=== PATIENT | male | born 1940 | race Caucasian/White ===

== ENCOUNTER → 2017-09-29 | Outpatient (CLI) | payer MEDICARE, BC ==
--- NOTE | 2017-09-29 13:33 | Diagnostic Imaging Report ---
PROCEDURE: X-RAY CHEST, TWO VIEWS COMPARISON: [facility], DX, [facility]AT W/CXR - [facility], 06/03/2016, 10:25. INDICATIONS: COUGH FINDINGS: LUNGS: There is stable pulmonary hyperinflation. New prominence of the interstitium in the mid and lower lung zones of the right lung without felicita consolidation. No new findings in the left lung. PLEURA: No effusions or pneumothorax. HEART \T\ MEDIASTINUM: The heart is within normal size-limits. BONES \T\ SOFT TISSUES: Mild degenerative changes of the spine are stable. There are no focal osseous lesions. CONCLUSION: Increasing reticulation in the right lung could be the result of fibrosis progression with or without a superimposed acute process. No consolidation. Recommend further evaluation with CT of the chest. COPD. Dictated by: Levar Guerra M.D. on 09/29/2017 at 13:33 Electronically approved by: Levar Guerra M.D. on 09/29/2017 at 13:33
== END ==
LOC: RAD 12:41
PROVIDERS: ATTEND Family Medicine
DX: R05 Cough (principal)
CPT/HCPCS: 71046

== ENCOUNTER → 2021-10-18 | Outpatient (CLI) | payer BC, MEDICARE | LOC: RAD 12:33 | PROVIDERS: ATTEND Internal Medicine | DX: J15.9 Unspecified bacterial pneumonia (principal); J44.1 Chronic obstructive pulmonary disease with (acute) exacerbation | CPT/HCPCS: 71046 ==

== ENCOUNTER → 2021-12-20 | Outpatient (CLI) | payer MEDICARE, BC | LOC: RAD 14:16 | PROVIDERS: ATTEND Internal Medicine | DX: J15.9 Unspecified bacterial pneumonia (principal) | CPT/HCPCS: 71046 ==

== ENCOUNTER 2022-01-12 13:21 | Emergency (ER) | payer MEDICARE, BC ==
[~2022-01-12] VITALS: Ht 177.8 cm; Wt 81.6 kg
== END 2022-01-12 15:15 | disposition home or self-care (01) ==
LOC: ER 13:25
DX: R09.02 Hypoxemia (principal); J44.9 Chronic obstructive pulmonary disease, unspecified; I10 Essential (primary) hypertension; K21.9 Gastro-esophageal reflux disease without esophagitis; Z85.89 Personal history of malignant neoplasm of other organs and systems; Z87.891 Personal history of nicotine dependence
CPT/HCPCS: 94799; 99282

== ENCOUNTER 2022-02-06 08:57 | Inpatient (IN) | payer MEDICARE, BC ==
[~2022-02-06] VITALS: Ht 177.8 cm; Wt 81.6 kg
[2022-02-06] MEDS ORDERED: SODIUM CHLORIDE 0.9% 1000ML 1,000 ML IV STA (09:12)
[2022-02-06] MEDS ORDERED: METHYLPREDNISOLONE SOD SUCC 125 MG/2ML VIAL IV STA (09:12)
[2022-02-06 09:22] LABS: BASOPHILS % 0.2 % (0.0-1.0); EOSINOPHILS # (AUTO) 0.1 (0.0-0.4); EOSINOPHILS % 1.4 % (0.0-6.0); HEMATOCRIT 37.3 % (38.2-49.6); HEMOGLOBIN 11.3 g/dL (14.0-18.0); LYMPHOCYTES # (AUTO) 1.5 (1.0-3.2); LYMPHOCYTES % 16.4 % (18.0-39.1); MEAN CORPUSCULAR HEMOGLOBIN 28.5 pg (28-32); MEAN CORPUSCULAR HGB CONC 30.3 g/dL (31-35); MEAN CORPUSCULAR VOLUME 94.2 fL (81-99); MONOCYTES # (AUTO) 0.7 (0.2-0.8); MONOCYTES % 7.4 % (4.4-11.3); NEUTROPHILS # (AUTO) 6.7 (2.1-6.9); NEUTROPHILS % 74.4 % (38.7-80.0); PLATELET COUNT 442 x10e3/uL (140-360); RED BLOOD COUNT 3.96 x10e6/uL (4.3-5.7); RED CELL DISTRIBUTION WIDTH 14.4 % (11.7-14.4)
[2022-02-06 09:32] LABS: INR 0.86; PROTHROMBIN TIME 12.5 seconds (11.9-14.5)
[2022-02-06 09:33] LABS: PARTIAL THROMBOPLASTIN TIME 32.6 seconds (23.8-35.5)
[2022-02-06 09:42] LABS: ALANINE AMINOTRANSFERASE 21 IU/L (0-55); ALBUMIN 2.8 g/dL (3.5-5.0); ALBUMIN/GLOBULIN RATIO 0.7 (0.8-2.0); ALKALINE PHOSPHATASE 65 IU/L (40-150); ANION GAP 16.4 mmol/L (8-16); BLOOD UREA NITROGEN 21 mg/dL (7-26); BUN/CREATININE RATIO 21 (6-25); CALCIUM 9.2 mg/dL (8.4-10.2); CARBON DIOXIDE 32 mmol/L (22-29); CHLORIDE 99 mmol/L (98-107); CREATINE KINASE 36 IU/L (30-200); CREATININE, SERUM 1.02 mg/dL (0.72-1.25); GLUCOSE 107 mg/dL (74-118); POTASSIUM 4.4 mmol/L (3.5-5.1); SODIUM 143 mmol/L (136-145)
[2022-02-06] MEDS ORDERED: PIPERACILLIN/TAZOBACTAM 4.5 GM in SODIUM CHLORIDE 0.9% 100 ML IV ONE (10:00)
[2022-02-06] MEDS ORDERED: IOPAMIDOL 370 MG/ML 100 ML INFUS..BTL INJ ONE (10:32)
[2022-02-06] MEDS ORDERED: OMEPRAZOLE40 MG PO (10:33)
[2022-02-06] MEDS ORDERED: MONTELUKAST SOD10 MG PO (10:35)
[2022-02-06] MEDS ORDERED: AMLODIPINE-OLM1 EACH (10:36)
[2022-02-06] MEDS: AMLODIPINE BESYLATE 5 MG TAB PO SCH (10:45)
[2022-02-06] MEDS: LEVALBUTEROL HCL SOLN NEBU 0.63 MG/3 ML NEB INH SCH ×2 (11:30→19:15)
[2022-02-06] MEDS: Vancomycin IV 1 GM in SODIUM CHLORIDE 0.9% 250ML 250 ML IV SCH ×2 (11:30→21:00)
[2022-02-06] MEDS ORDERED: LIDOCAINE HCL 1% LOCAL INJ 20 ML VIAL ONE ×2 (12:32)
[2022-02-06 14:12] VITALS: BP 123/79
[2022-02-06 14:18] LABS: BODY FLUID APPEARANCE CLOUDY; BODY FLUID COLOR RED; BODY FLUID TYPE PLEURAL
[2022-02-06 14:19] LABS: RBC,BODY FLUID 31000 cells/uL; WBC,BODY FLUID 265 cells/uL
[2022-02-06 14:55] LABS: LYMPHOCYTES,BODY FLUID 80 %; NEUTROPHILS,BODY FLUID 3 %
[2022-02-06 14:56] LABS: MONO/MACROPHG,BODY FLUID 10 %; OTHER CELLS,BODY FLUID 7 %
[2022-02-06] MEDS ORDERED: LACTATED RINGER'S 1,000 ML INJ ONE (15:30)
[2022-02-06 15:57] VITALS: BP 110/78
[2022-02-06 17:14] VITALS: BP 110/78
[2022-02-06 20:00] VITALS: BP 123/59
[2022-02-06] MEDS: TEMAZEPAM 15 MG CAP PO PRN (23:25)
[2022-02-07] MEDS: LEVALBUTEROL HCL SOLN NEBU 0.63 MG/3 ML NEB INH SCH ×4 (00:22→19:35)
[2022-02-07] MEDS ORDERED: LACTATED RINGER'S 1,000 ML INJ ONE (03:45)
[2022-02-07 05:01] LABS: BASOPHILS % 0.2 % (0.0-1.0); HEMATOCRIT 34.9 % (38.2-49.6); HEMOGLOBIN 10.6 g/dL (14.0-18.0); LYMPHOCYTES # (AUTO) 1.3 (1.0-3.2); LYMPHOCYTES % 10.9 % (18.0-39.1); MEAN CORPUSCULAR HEMOGLOBIN 28.1 pg (28-32); MEAN CORPUSCULAR HGB CONC 30.4 g/dL (31-35); MEAN CORPUSCULAR VOLUME 92.6 fL (81-99); MONOCYTES # (AUTO) 0.8 (0.2-0.8); MONOCYTES % 6.9 % (4.4-11.3); NEUTROPHILS # (AUTO) 9.9 (2.1-6.9); NEUTROPHILS % 81.5 % (38.7-80.0); PLATELET COUNT 425 x10e3/uL (140-360); RED BLOOD COUNT 3.77 x10e6/uL (4.3-5.7); RED CELL DISTRIBUTION WIDTH 14.5 % (11.7-14.4)
[2022-02-07 05:22] LABS: ALBUMIN 2.3 g/dL (3.5-5.0); ALBUMIN/GLOBULIN RATIO 0.6 (0.8-2.0); ANION GAP 11.8 mmol/L (8-16); CALCIUM 8.9 mg/dL (8.4-10.2); CREATININE, SERUM 0.97 mg/dL (0.72-1.25); POTASSIUM 4.8 mmol/L (3.5-5.1)
[2022-02-07] MEDS ORDERED: IOPAMIDOL 370 MG/ML 100 ML INFUS..BTL INJ ONE ×3 (06:39→11:57)
[2022-02-07 07:51] VITALS: BP 114/80
[2022-02-07 07:57] VITALS: BP 114/80
[2022-02-07] MEDS ORDERED: OLMESARTAN 20 MG TAB PO SCH (09:00)
[2022-02-07] MEDS: AMLODIPINE BESYLATE 5 MG TAB PO SCH (09:04)
[2022-02-07] MEDS: MONTELUKAST SODIUM 10 MG TAB PO SCH (09:07)
[2022-02-07] MEDS: PANTOPRAZOLE SOD 40 MG TABEC PO SCH (09:08)
[2022-02-07] MEDS: Vancomycin IV 1 GM in SODIUM CHLORIDE 0.9% 250ML 250 ML IV SCH ×2 (12:13→22:12)
[2022-02-07 12:34] VITALS: BP 95/60
[2022-02-07] MEDS ORDERED: LACTATED RINGER'S 1,000 ML ONE (14:02)
[2022-02-07 15:44] VITALS: BP 97/60
[2022-02-07 20:00] VITALS: BP 141/126
[2022-02-07] MEDS: TEMAZEPAM 15 MG CAP PO PRN ×2 (22:12→23:50)
[2022-02-07 22:35] VITALS: BP 115/76
[2022-02-08] VITALS (13 sets, daily range): BP systolic 94–132; BP diastolic 45–77
[2022-02-08] MEDS: LEVALBUTEROL HCL SOLN NEBU 0.63 MG/3 ML NEB INH SCH ×4 (01:20→18:50)
[2022-02-08 05:04] LABS: BASOPHILS % 0.3 % (0.0-1.0); EOSINOPHILS # (AUTO) 0.1 (0.0-0.4); EOSINOPHILS % 1.2 % (0.0-6.0); HEMATOCRIT 34.8 % (38.2-49.6); HEMOGLOBIN 10.4 g/dL (14.0-18.0); LYMPHOCYTES # (AUTO) 1.2 (1.0-3.2); LYMPHOCYTES % 13.3 % (18.0-39.1); MEAN CORPUSCULAR HGB CONC 29.9 g/dL (31-35); MEAN CORPUSCULAR VOLUME 93.8 fL (81-99); MONOCYTES # (AUTO) 0.8 (0.2-0.8); MONOCYTES % 9.1 % (4.4-11.3); NEUTROPHILS # (AUTO) 6.7 (2.1-6.9); NEUTROPHILS % 75.9 % (38.7-80.0); PLATELET COUNT 378 x10e3/uL (140-360); RED BLOOD COUNT 3.71 x10e6/uL (4.3-5.7); RED CELL DISTRIBUTION WIDTH 14.5 % (11.7-14.4)
[2022-02-08 05:20] LABS: ANION GAP 11.4 mmol/L (8-16); CALCIUM 8.1 mg/dL (8.4-10.2); CREATININE, SERUM 0.91 mg/dL (0.72-1.25); POTASSIUM 4.4 mmol/L (3.5-5.1)
[2022-02-08] MEDS: PANTOPRAZOLE SOD 40 MG TABEC PO SCH (09:00)
[2022-02-08] MEDS ORDERED: FENTANYL CITRATE/PF 100MCG/2 ML INJ ONE (12:54)
[2022-02-08] MEDS ORDERED: MIDAZOLAM HCL 2 MG/2 ML VIAL ONE (12:54)
[2022-02-08] MEDS ORDERED: SODIUM CHLORIDE 0.9% 250ML 250 ML ONE (12:55)
[2022-02-08] MEDS: MONTELUKAST SODIUM 10 MG TAB PO SCH (16:36)
[2022-02-08] MEDS: AMLODIPINE BESYLATE 5 MG TAB PO SCH (16:36)
[2022-02-08] MEDS ORDERED: Vancomycin IV 1 GM in SODIUM CHLORIDE 0.9% 250ML 250 ML IV SCH (21:00)
[2022-02-08] MEDS: TEMAZEPAM 15 MG CAP PO PRN (21:22)
[2022-02-08] MEDS ORDERED: MAGNESIUM HYDROXIDE 30 ML UDC PO PRN (21:45)
[2022-02-08] MEDS ORDERED: MAGNESIUM HYDROXIDE 30 ML UDC PO ONE (21:45)
[2022-02-09] VITALS: BP 118/77
[2022-02-09] MEDS: LEVALBUTEROL HCL SOLN NEBU 0.63 MG/3 ML NEB INH SCH ×3 (00:50→12:30)
[2022-02-09 04:00] VITALS: BP 117/80
[2022-02-09 04:54] LABS: BASOPHILS % 0.3 % (0.0-1.0); EOSINOPHILS # (AUTO) 0.2 (0.0-0.4); EOSINOPHILS % 1.6 % (0.0-6.0); HEMATOCRIT 36.8 % (38.2-49.6); HEMOGLOBIN 10.9 g/dL (14.0-18.0); LYMPHOCYTES # (AUTO) 1.7 (1.0-3.2); LYMPHOCYTES % 18.2 % (18.0-39.1); MEAN CORPUSCULAR HEMOGLOBIN 27.8 pg (28-32); MEAN CORPUSCULAR HGB CONC 29.6 g/dL (31-35); MEAN CORPUSCULAR VOLUME 93.9 fL (81-99); MONOCYTES # (AUTO) 0.9 (0.2-0.8); MONOCYTES % 9.8 % (4.4-11.3); NEUTROPHILS # (AUTO) 6.4 (2.1-6.9); NEUTROPHILS % 69.8 % (38.7-80.0); PLATELET COUNT 389 x10e3/uL (140-360); RED BLOOD COUNT 3.92 x10e6/uL (4.3-5.7); RED CELL DISTRIBUTION WIDTH 14.4 % (11.7-14.4)
[2022-02-09 05:13] LABS: ANION GAP 11.8 mmol/L (8-16); CALCIUM 8.5 mg/dL (8.4-10.2); CREATININE, SERUM 0.83 mg/dL (0.72-1.25); POTASSIUM 4.8 mmol/L (3.5-5.1)
[2022-02-09 08:23] VITALS: BP 124/81
[2022-02-09 08:59] VITALS: BP 124/81
[2022-02-09] MEDS: AMLODIPINE BESYLATE 5 MG TAB PO SCH (09:40)
[2022-02-09] MEDS: PANTOPRAZOLE SOD 40 MG TABEC PO SCH (09:40)
[2022-02-09] MEDS: MONTELUKAST SODIUM 10 MG TAB PO SCH (09:41)
[2022-02-09] MEDS ORDERED: FUROSEMIDE INJ 10 MG/ML 4 ML VIAL IV ONE (11:00)
[2022-02-09] MEDS ORDERED: FUROSEMIDE40 MG PO (11:22)
[2022-02-09] MEDS ORDERED: LEVOFLOXACIN250 MG PO ×2 (11:23)
== END 2022-02-09 15:12 | disposition home or self-care (01) | DRG 180 ==
LOC: ER 09:04 → ERHOLD 10:33 → MED/SURG3 13:58
PROVIDERS: ADMIT Internal Medicine; ATTEND Internal Medicine
PROC: 0W993ZZ Drainage of Right Pleural Cavity, Percutaneous Approach (ICD-10-PCS; 2022-02-06)
PROC: 0W9930Z Drainage of Right Pleural Cavity with Drainage Device, Percutaneous Approach (ICD-10-PCS; 2022-02-06)
PROC: 0BBC3ZX Excision of Right Upper Lung Lobe, Percutaneous Approach, Diagnostic (ICD-10-PCS; principal; 2022-02-08)
DX: C34.11 Malignant neoplasm of upper lobe, right bronchus or lung (principal); J18.9 Pneumonia, unspecified organism; C77.1 Secondary and unspecified malignant neoplasm of intrathoracic lymph nodes; E44.1 Mild protein-calorie malnutrition; J44.0 Chronic obstructive pulmonary disease with (acute) lower respiratory infection; J90 Pleural effusion, not elsewhere classified; J44.1 Chronic obstructive pulmonary disease with (acute) exacerbation; Z94.0 Kidney transplant status; J94.2 Hemothorax; I13.10 Hypertensive heart and chronic kidney disease without heart failure, with stage 1 through stage 4 chronic kidney disease, or unspecified chronic kidney disease; N18.30 Chronic kidney disease, stage 3 unspecified; Z87.891 Personal history of nicotine dependence; D63.8 Anemia in other chronic diseases classified elsewhere; Z68.25 Body mass index [BMI] 25.0-25.9, adult; Z82.49 Family history of ischemic heart disease and other diseases of the circulatory system; J30.9 Allergic rhinitis, unspecified; K21.9 Gastro-esophageal reflux disease without esophagitis
CPT/HCPCS: 32408; 32551; 36415; 71045; 71260; 74177; 74470; 76604; 77012; 80048; 80053; 80202; 82550; 82553; 82945; 83605; 83615; 83735; 83880; 84157; 84484; 85025; 85610; 85730; 87040; 87070; 87102; 87116; 87205; 87206; 88112; 88173; 88300; 88304; 88305; 88342; 89051; 93005; 94640; 94760; 94799; 99284; J0456; J0692; J1940; J2001; J2250; J2543; J2930; J3010; J3370; J7030; J7050; J7121; Q9967

== ENCOUNTER → 2022-02-22 | Day surgery (SDC) | payer MEDICARE, BC ==
[~2022-02-22] MED LIST: ALBUTEROL0.63 MG/3 INH; AMLODIPINE-OLM1 EACH; FUROSEMIDE40 MG PO; HEPARIN SOD (PORCINE) 5,000 UNIT/ML VIAL ONE; HYDROCODONE/APAP 7.5MG-325MG 1 EA TAB ONE; LEVALBUTER1.25 MG/3 INH; LEVOFLOXACIN250 MG PO; LIDOCAINE HCL 1% 30ML-PF VIAL ONE; LIDOCAINE HCL 2% LOCAL 20 ML VIAL ONE; LIDOCAINE HCL 2% LOCAL INJ 5 ML SDV VIAL INJ ONE; MIDAZOLAM HCL 2 MG/2 ML VIAL ONE; MONTELUKAST SOD10 MG PO; OMEPRAZOLE40 MG PO; ONE DAILY MEN'1 EAC1 PO; POVIDONE IODINE 0.05% 0.05 % ML PO ONE; PROPOFOL IV EMULSION 10 MG/ML 20 ML VIAL ONE; SODIUM CHLORIDE 0.9% 500ML 500 ML ONE; SYMBICORT 16010.2 GM INH; TEMAZEPAM15 MG PO
[2022-02-22 13:48] LABS: ALBUMIN 2.5 g/dL (3.5-5.0); ALBUMIN/GLOBULIN RATIO 0.6 (0.8-2.0); ANION GAP 15.8 mmol/L (8-16); CALCIUM 8.9 mg/dL (8.4-10.2); CREATININE, SERUM 1.29 mg/dL (0.72-1.25); POTASSIUM 3.8 mmol/L (3.5-5.1)
[2022-02-22 17:55] VITALS: BP 120/80
== END | disposition home or self-care (01) ==
LOC: OR 13:10
PROVIDERS: ATTEND Surgery
DX: C34.91 Malignant neoplasm of unspecified part of right bronchus or lung (principal); F41.9 Anxiety disorder, unspecified; Z85.46 Personal history of malignant neoplasm of prostate
CPT/HCPCS: 0223U; 36415; 36561; 76000; 80053; C1751; J0690; J1644; J2001 ×3; J2250; J2704; J7040

== ENCOUNTER 2022-03-09 09:54 | Inpatient (IN) | payer MEDICARE, BC ==
[~2022-03-09] VITALS: Ht 177.8 cm; Wt 81.6 kg
[2022-03-09] VITALS (15 sets, daily range): BP systolic 96–141; BP diastolic 64–99
[~2022-03-09 09:54] MED LIST changes: -HEPARIN SOD (PORCINE) 5,000 UNIT/ML VIAL ONE; -HYDROCODONE/APAP 7.5MG-325MG 1 EA TAB ONE; -LIDOCAINE HCL 1% 30ML-PF VIAL ONE; -LIDOCAINE HCL 2% LOCAL 20 ML VIAL ONE; -LIDOCAINE HCL 2% LOCAL INJ 5 ML SDV VIAL INJ ONE; -MIDAZOLAM HCL 2 MG/2 ML VIAL ONE; -POVIDONE IODINE 0.05% 0.05 % ML PO ONE; -PROPOFOL IV EMULSION 10 MG/ML 20 ML VIAL ONE; -SODIUM CHLORIDE 0.9% 500ML 500 ML ONE
[2022-03-09] MEDS ORDERED: SODIUM CHLORIDE 0.9% 500ML 500 ML IV STA (10:37)
[2022-03-09] MEDS ORDERED: SODIUM CHLORIDE 0.9% 500ML 500 ML ONE (10:52)
[2022-03-09 11:10] LABS: BASOPHILS # (AUTO) 0.1 (0.0-0.1); BASOPHILS % 0.3 % (0.0-1.0); EOSINOPHILS # (AUTO) 0.1 (0.0-0.4); EOSINOPHILS % 0.2 % (0.0-6.0); HEMATOCRIT 29.2 % (38.2-49.6); HEMOGLOBIN 8.8 g/dL (14.0-18.0); LYMPHOCYTES # (AUTO) 0.9 (1.0-3.2); LYMPHOCYTES % 2.1 % (18.0-39.1); MEAN CORPUSCULAR HEMOGLOBIN 27.7 pg (28-32); MEAN CORPUSCULAR HGB CONC 30.1 g/dL (31-35); MEAN CORPUSCULAR VOLUME 91.8 fL (81-99); MONOCYTES # (AUTO) 0.2 (0.2-0.8); MONOCYTES % 0.4 % (4.4-11.3); NEUTROPHILS # (AUTO) 35.5 (2.1-6.9); NEUTROPHILS % 89.6 % (38.7-80.0); PLATELET COUNT 530 x10e3/uL (140-360); RED BLOOD COUNT 3.18 x10e6/uL (4.3-5.7); RED CELL DISTRIBUTION WIDTH 15.4 % (11.7-14.4)
[2022-03-09 11:10] LABS: ABG PH 7.36 (7.35-7.45)
[2022-03-09 11:13] LABS: ABG HCO3 47 mmol/L (22-26); ABG PCO2 81 mmHg (35-45); ABG PO2 345 mmHg (80-105); ABG TCO2 49
[2022-03-09 11:25] LABS: ALBUMIN 2.8 g/dL (3.5-5.0); ALBUMIN/GLOBULIN RATIO 0.7 (0.8-2.0); ANION GAP 19.2 mmol/L (8-16); CALCIUM 9.2 mg/dL (8.4-10.2); CREATININE, SERUM 1.1 mg/dL (0.72-1.25); INR 0.95; POTASSIUM 4.2 mmol/L (3.5-5.1); PROTHROMBIN TIME 13.5 seconds (11.9-14.5)
[2022-03-09 12:00] LABS: BAND NEUTROPHILS % (MANUAL) 4 %; LYMPHOCYTES % (MANUAL) 4 % (19-48); NEUTROPHILS % (MANUAL) 92 % (40-74)
[2022-03-09] MEDS ORDERED: Morphine 4mg INJECTION 4 MG/ML INJ IV PRN (12:00)
[2022-03-09] MEDS ORDERED: ONDANSETRON HCL INJ 2MG/ML 2ML 2 MG/ML VIAL IV PRN (12:00)
[2022-03-09 12:01] LABS: PLATELET ESTIMATE MODERATELY INCREASED; PLATELET MORPHOLOGY COMMENT NORMAL
[2022-03-09 12:02] LABS: RBC MORPHOLOGY COMMENT NORMAL
[2022-03-09] MEDS ORDERED: LORAZEPAM 0.5 MG TAB PO PRN (13:45)
[2022-03-09] MEDS ORDERED: FUROSEMIDE INJ 10 MG/ML 4 ML VIAL IV ONE (14:00)
[2022-03-09] MEDS: ALBUTEROL/IPRATROPIUM 3 ML NEB NEB SCH ×2 (14:10→18:50)
[2022-03-09] MEDS: BUDESONIDE/FORMOTEROL 160/4.5MCG INHALER INH SCH (19:00)
[2022-03-09] MEDS: Morphine 4mg INJECTION 4 MG/ML INJ IV PRN (19:28)
[2022-03-09] MEDS ORDERED: TEMAZEPAM 15 MG CAP PO SCH (21:00)
[2022-03-10] VITALS (7 sets, daily range): BP systolic 65–136; BP diastolic 56–79
[2022-03-10] MEDS: ALBUTEROL/IPRATROPIUM 3 ML NEB NEB SCH ×4 (01:00→19:00)
[2022-03-10] MEDS: Morphine 4mg INJECTION 4 MG/ML INJ IV PRN ×7 (01:45→18:46)
[2022-03-10] MEDS: BUDESONIDE/FORMOTEROL 160/4.5MCG INHALER INH SCH ×2 (06:52→19:00)
[2022-03-10] MEDS ORDERED: MONTELUKAST SODIUM 10 MG TAB PO SCH (09:00)
[2022-03-10] MEDS ORDERED: FUROSEMIDE INJ 10 MG/ML 4 ML VIAL IV ONE (11:00)
== END 2022-03-11 01:17 | disposition expired | DRG 871 ==
LOC: ER 09:59 → ERHOLD 11:49 → ICU 12:45 → OBSVTOIN 13:17 → MED/SURG3 03-10 06:39
PROVIDERS: ADMIT Internal Medicine; ATTEND Internal Medicine
DX: A41.9 Sepsis, unspecified organism (principal); G93.41 Metabolic encephalopathy; J18.9 Pneumonia, unspecified organism; C34.91 Malignant neoplasm of unspecified part of right bronchus or lung; C77.1 Secondary and unspecified malignant neoplasm of intrathoracic lymph nodes; C78.2 Secondary malignant neoplasm of pleura; J91.8 Pleural effusion in other conditions classified elsewhere; D63.8 Anemia in other chronic diseases classified elsewhere; Z99.81 Dependence on supplemental oxygen; F41.9 Anxiety disorder, unspecified; J44.9 Chronic obstructive pulmonary disease, unspecified; Z66 Do not resuscitate; R09.02 Hypoxemia; I12.9 Hypertensive chronic kidney disease with stage 1 through stage 4 chronic kidney disease, or unspecified chronic kidney disease; N18.30 Chronic kidney disease, stage 3 unspecified; Z85.46 Personal history of malignant neoplasm of prostate; Z87.891 Personal history of nicotine dependence; Z20.822 Contact with and (suspected) exposure to COVID-19; Z51.5 Encounter for palliative care; Z95.828 Presence of other vascular implants and grafts
CPT/HCPCS: 36415; 36600; 71045; 80053; 82805; 83605; 83880; 84484; 85025; 85610; 87040; 93005; 94799; 99284; J1940; J2270; J7040